=== PATIENT | male | born 1965 | race Caucasian/White ===

== ENCOUNTER 2019-08-31 11:06 | Emergency (ER) | payer OTHER ==
[~2019-08-31] VITALS: Ht 175.3 cm; Wt 84.9 kg
--- NOTE | 2019-08-31 11:59 | NUR ---
RESEARCH PROJECT MANAGER: PT WALKED BACK FROM LOBBY TO ROOM AT THIS TIME. STEADY UPON AMBULATION. NO ACUTE DISTRESS NOTED AT THIS TIME.
[2019-08-31] MEDS ORDERED: SODIUM CHLORIDE 0.9% 1,000ML IVBOLUS ONE ×2 (12:30→13:30)
[2019-08-31] MEDS ORDERED: ONDANSETRON 2MG/ML, 2ML IVPush ONE (12:30)
[2019-08-31] MEDS ORDERED: SODIUM CHLORIDE FLUSH 10ML SYR IVF ONE (12:30)
[2019-08-31 12:35] LABS: BASOPHILS # (AUTO) 0.04 x10^3/uL (0-0.1); BASOPHILS % (AUTO) 1 % (0-1); EOSINOPHILS # (AUTO) 0.08 x10^3/uL (0-0.4); EOSINOPHILS % (AUTO) 1 % (1-7); LYMPHOCYTES # (AUTO) 1.86 x10^3/uL (1-3.4); LYMPHOCYTES % (AUTO) 24 % (22-44); MD NO; MEAN CORPUSCULAR HEMOGLOBIN 35.3 pg (27.5-34.5); MEAN CORPUSCULAR HGB CONC 34.3 g/dL (33.2-36.2); MEAN CORPUSCULAR VOLUME 103.1 fL (81-97); MEAN PLATELET VOLUME 7.7 fL (7.4-10.4); MONOCYTES # (AUTO) 0.63 x10^3/uL (0.2-0.8); MONOCYTES % (AUTO) 8 % (2-9); NEUTROPHILS # (AUTO) 5.07 x10^3/uL (1.8-6.8); NEUTROPHILS % (AUTO) 66 % (42-75); PLATELET COUNT 275 x10^3/uL (130-400); RED BLOOD COUNT 4.44 x10^6/uL (4.38-5.82); RED CELL DISTRIBUTION WIDTH 12.5 % (9.4-14.8)
[2019-08-31 12:47] LABS: ALANINE AMINOTRANSFERASE 209 U/L (12-78); ALBUMIN 3.6 g/dL (3.4-5.0); ANION GAP 13 mmol/L (5-15); CALCIUM 8.7 mg/dL (8.5-10.1); CHLORIDE 102 mmol/L (98-107); CREATININE 1.29 mg/dL (0.7-1.3)
[2019-08-31 12:50] LABS: ALKALINE PHOSPHATASE 77 U/L (45-117); BILIRUBIN,TOTAL 1.6 mg/dL (0.2-1.0); TOTAL PROTEIN 7.1 g/dL (6.4-8.2)
[2019-08-31 12:51] LABS: CREATINE KINASE, TOTAL 135 U/L (39-308)
--- NOTE | 2019-08-31 12:54 | NUR ---
PT AT THIS TIME HAS NO NAUSEA. PT WISHES TO HOLD OFF ON OFRAN UNTIL NAUSEA RETURNS
--- NOTE | 2019-08-31 14:13 | NUR ---
pt ambulated to restroom with a steady gait. pt up for recheck at this time.
[2019-08-31 14:20] VITALS: BP 154/93
== END 2019-08-31 14:43 | disposition home or self-care (01) ==
LOC: ED 13:32
DX: T67.3XXA Heat exhaustion, anhydrotic, initial encounter (principal); E86.0 Dehydration; R94.5 Abnormal results of liver function studies; R42 Dizziness and giddiness; M79.10 Myalgia, unspecified site
CPT/HCPCS: 36415; 80053; 82550; 85025; 96360; 96361; 99283; J7030

== ENCOUNTER 2019-09-02 08:49 | Emergency (ER) | payer OTHER ==
[~2019-09-02] VITALS: Ht 175.3 cm; Wt 87.8 kg
[2019-09-02 08:52] VITALS: BP 170/94
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
--- NOTE | 2019-09-02 09:22 | NUR ---
ermd at bedside with u/s.
--- NOTE | 2019-09-02 10:18 | NUR ---
PT D/C'D PER ORDERS. PT VERBALIZED UNDERSTANDING OF D/C INSTRUCTIONS.
== END 2019-09-02 10:21 | disposition home or self-care (01) ==
LOC: ED 09:14
DX: S50.12XA Contusion of left forearm, initial encounter (principal); X58.XXXA Exposure to other specified factors, initial encounter; Y93.89 Activity, other specified; Y92.89 Other specified places as the place of occurrence of the external cause; Y99.8 Other external cause status
CPT/HCPCS: 99281

== ENCOUNTER 2020-08-28 06:12 | Emergency (ER) | payer OTHER ==
[~2020-08-28] VITALS: Ht 172.7 cm; Wt 83.0 kg
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
[2020-08-28] MEDS ORDERED: METHOCARBAMOL 750 MG TABLET ONE (07:23)
[2020-08-28] MEDS ORDERED: KETOROLAC 60 MG/2 ML ONE (07:24)
[2020-08-28] MEDS ORDERED: HYDROcodone/APAP 5/325 TABLET ONE ×2 (07:24→08:50)
[2020-08-28] MEDS ORDERED: KETOROLAC 60 MG/2 ML IM ONE (07:30)
[2020-08-28] MEDS ORDERED: HYDROcodone/APAP 5/325 TABLET PO ONE (07:30)
[2020-08-28] MEDS ORDERED: METHOCARBAMOL 750 MG TABLET PO ONE (07:30)
[2020-08-28 08:51] VITALS: BP 164/95
== END 2020-08-28 10:35 | disposition home or self-care (01) ==
LOC: ED 08:19
DX: S39.012A Strain of muscle, fascia and tendon of lower back, initial encounter (principal); S20.211A Contusion of right front wall of thorax, initial encounter; S30.0XXA Contusion of lower back and pelvis, initial encounter; F17.200 Nicotine dependence, unspecified, uncomplicated; X58.XXXA Exposure to other specified factors, initial encounter; Y93.89 Activity, other specified; Y92.89 Other specified places as the place of occurrence of the external cause; Y99.8 Other external cause status
CPT/HCPCS: 71046; 72110; 72190; 96372; 99284; J1885